=== PATIENT | male | born 1995 | race Caucasian/White ===

== ENCOUNTER 2019-06-16 08:17 | Inpatient (IN) | payer OTHER ==
[~2019-06-16] VITALS: Ht 175.3 cm; Wt 64.0 kg
[2019-06-16] VITALS (11 sets, daily range): BP systolic 117–149; BP diastolic 67–86
--- NOTE | 2019-06-16 08:29 | NUR ---
ED Nurse Note: Pt walked into unit w/ abdominal pain 7/10 R side. Pain started this morning at 0400. Pt denies nuasea and vomiting, diarrhea. Last BM was today solid and brown. Pt is alert adn orientedx4, ambulatory. Pt sitting in bed.
--- NOTE | 2019-06-16 08:42 | Emergency Room Report ---
History of Present Illness General Chief Complaint: Abdominal Pain Source: Patient Present Illness HPI Patient presents with what he reports essentially bilateral and diffuse abdominal discomfort starting earlier last night patient was able to sleep however around 4:00 had increased pain followed by diarrhea patient also now reports that he feels the pain is More towards the right lower part of the abdomen denies any vomiting denies any fevers denies any chest pain or shortness of breath pain is 7 out of 10 sharp Denies any recent travel Allergies: Coded Allergies: No Known Allergies (Unverified , 06/16/19) Patient History Past Medical History: see triage record Reviewed Nursing Documentation: PMH: Agreed; PSxH: Agreed Nursing Documentation-PMH Past Medical History: No Stated History Review of Systems All Other Systems: negative except mentioned in HPI Physical Exam Vital Signs Date Time Temp Pulse Resp B/P (MAP) Pulse Ox O2 Delivery O2 Flow Rate FiO2 06/16/19 08:20 97.5 98 19 128/76 (93) 99 Room Air 06/16/19 08:31 96 Sp02 EP Interpretation: reviewed, normal General Appearance: mild distress Head: normocephalic, atraumatic Eyes: bilateral eye PERRL, bilateral eye EOMI ENT: hearing grossly normal, EOM grossly intact Neck: supple Respiratory: lungs clear, no respiratory distress, no retraction Cardiovascular #1: regular rate, rhythm, no edema Gastrointestinal: non tender - On palpation however subjectively points to the right area of the umbilical region, soft Genitourinary: no CVA tenderness Musculoskeletal: normal inspection Neurologic: alert, oriented x3 Psychiatric: normal inspection Skin: no rash Lymphatic: normal inspection Procedures Critical Care Time Critical Care Time 40 minutes for multiple re-evaluations findings concerning for left ring process requiring general surgery consultation and further emergency surgery intervention not including any procedural time Medical Decision Making Diagnostic Impression: Primary Impression: Acute appendicitis ER Course With the history exam and presentation, multiple differentials considered, including but not limited to appendicitis, gastritis, cholecystitis, diverticulitis Patient has IV hydration initiated extensive blood work and imaging CT imaging does show concerning findings of appendicitis there was report of possible microperforation as well Patient initiated on IV antibiotics and General surgery accepting to the OR Labs Test 06/16/19 08:30 06/17/19 04:40 White Blood Count 12.5 K/UL (4.8-10.8) 10.8 K/UL (4.8-10.8) Red Blood Count 5.18 M/UL (4.70-6.10) 4.23 M/UL (4.70-6.10) Hemoglobin 16.8 G/DL (14.2-18.0) 13.8 G/DL (14.2-18.0) Hematocrit 47.8 % (42.0-52.0) 39.5 % (42.0-52.0) Mean Corpuscular Volume 92 FL (80-99) 93 FL (80-99) Mean Corpuscular Hemoglobin 32.5 PG (27.0-31.0) 32.6 PG (27.0-31.0) Mean Corpuscular Hemoglobin Concent 35.2 G/DL (32.0-36.0) 34.9 G/DL (32.0-36.0) Red Cell Distribution Width 12.3 % (11.6-14.8) 12.1 % (11.6-14.8) Platelet Count 194 K/UL (150-450) 154 K/UL (150-450) Mean Platelet Volume 9.4 FL (6.5-10.1) 8.9 FL (6.5-10.1) Neutrophils (%) (Auto) 76.4 % (45.0-75.0) 71.0 % (45.0-75.0) Lymphocytes (%) (Auto) 12.2 % (20.0-45.0) 17.5 % (20.0-45.0) Monocytes (%) (Auto) 10.3 % (1.0-10.0) 10.5 % (1.0-10.0) Eosinophils (%) (Auto) 0.4 % (0.0-3.0) 0.4 % (0.0-3.0) Basophils (%) (Auto) 0.8 % (0.0-2.0) 0.6 % (0.0-2.0) Urine Color Yellow Urine Appearance Clear Urine pH 8 (4.5-8.0) Urine Specific [place] 1.010 (1.005-1.035) Urine Protein 1+ (NEGATIVE) Urine Glucose (UA) Negative (NEGATIVE) Urine Ketones 1+ (NEGATIVE) Urine Blood Negative (NEGATIVE) Urine Nitrite Negative (NEGATIVE) Urine Bilirubin Negative (NEGATIVE) Urine Urobilinogen 1 MG/DL (0.0-1.0) Urine Leukocyte Esterase Negative (NEGATIVE) Urine RBC 0 /HPF (0 - 0) Urine WBC 0 /HPF (0 - 0) Urine Squamous Epithelial Cells Occasional /LPF Urine Bacteria Occasional /HPF (NONE) Urine Mucus Few /LPF (NONE/OCC) Sodium Level 141 MMOL/L (136-145) 141 MMOL/L (136-145) Potassium Level 4.2 MMOL/L (3.5-5.1) 4.0 MMOL/L (3.5-5.1) Chloride Level 106 MMOL/L (98-107) 106 MMOL/L (98-107) Carbon Dioxide Level 23 MMOL/L (21-32) 25 MMOL/L (21-32) Anion Gap 12 mmol/L (5-15) 10 mmol/L (5-15) Blood Urea Nitrogen 8 mg/dL (7-18) 5 mg/dL (7-18) Creatinine 0.9 MG/DL (0.55-1.30) 0.9 MG/DL (0.55-1.30) Estimat Glomerular Filtration Rate > 60 mL/min (>60) > 60 mL/min (>60) Glucose Level 93 MG/DL (74-106) 104 MG/DL (74-106) Calcium Level 9.5 MG/DL (8.5-10.1) 9.0 MG/DL (8.5-10.1) Total Bilirubin 0.9 MG/DL (0.2-1.0) Aspartate Amino Transf (AST/SGOT) 17 U/L (15-37) Alanine Aminotransferase (ALT/SGPT) 17 U/L (12-78) Alkaline Phosphatase 88 U/L (46-116) Total Protein 8.7 G/DL (6.4-8.2) Albumin 4.4 G/DL (3.4-5.0) Globulin 4.3 g/dL Albumin/Globulin Ratio 1.0 (1.0-2.7) Lipase 104 U/L (73-393) Urine Opiates Screen Negative (NEGATIVE) Urine Barbiturates Screen Negative (NEGATIVE) Phencyclidine (PCP) Screen Negative (NEGATIVE) Urine Amphetamines Screen Negative (NEGATIVE) Urine Benzodiazepines Screen Negative (NEGATIVE) Urine Cocaine Screen Negative (NEGATIVE) Urine Marijuana (THC) Screen Negative (NEGATIVE) CT/MRI/US Diagnostic Results CT/MRI/US Diagnostic Results : Impression CT abdomen pelvisIMPRESSION: 9.2 mm fluid dilated appendix with thickened enhancing wall and surrounding inflammatory changes consistent with acute appendicitis. 6 mm appendicolith in the mid appendix. Small free fluid may be microperforation. No free air or abscess. Last Vital Signs Date Time Temp Pulse Resp B/P (MAP) Pulse Ox O2 Delivery O2 Flow Rate FiO2 06/16/19 08:31 97 20 Room Air 96 06/16/19 08:31 97.5 125/74 99 Status: improved Disposition: ADMITTED INPATIENT Condition: Critical Scripts No Active Prescriptions or Reported Meds Alayna Cee DO Jun 16, 2019 08:42
[2019-06-16] MEDS ORDERED: Omnipaque-300 100ml vial INJ PRN (08:45)
[2019-06-16] MEDS ORDERED: Ketorolac 30mg Inj IV ONE (08:45)
[2019-06-16 09:05] LABS: APPEARANCE,URINE CLEAR; BILIRUBIN, URINE NEGATIVE (NEGATIVE); GLUCOSE, URINE (UA) NEGATIVE (NEGATIVE); KETONES,URINE 1+ (NEGATIVE); LEUKOCYTE ESTERASE ,URINE NEGATIVE (NEGATIVE); NITRITE,URINE NEGATIVE (NEGATIVE); PH,URINE 8 (4.5-8.0); PROTEIN,URINE 1+ (NEGATIVE); UROBILINOGEN,URINE 1 MG/DL (0.0-1.0)
[2019-06-16 09:08] LABS: BASOPHILS % (AUTO) 0.8 % (0.0-2.0); EOSINOPHILS % (AUTO) 0.4 % (0.0-3.0); HEMATOCRIT 47.8 % (42.0-52.0); HEMOGLOBIN 16.8 G/DL (14.2-18.0); LYMPHOCYTES % (AUTO) 12.2 % (20.0-45.0); MEAN CORPUSCULAR VOLUME 92 FL (80-99); MONOCYTES % (AUTO) 10.3 % (1.0-10.0); NEUTROPHILS % (AUTO) 76.4 % (45.0-75.0); PLATELET COUNT 194 K/UL (150-450); RED BLOOD COUNT 5.18 M/UL (4.70-6.10); RED CELL DISTRIBUTION WIDTH 12.3 % (11.6-14.8); WHITE BLOOD COUNT 12.5 K/UL (4.8-10.8)
[2019-06-16 09:10] LABS: COLOR,URINE YELLOW
[2019-06-16 09:17] LABS: ANION GAP 12 mmol/L (5-15); BLOOD UREA NITROGEN 8 mg/dL (7-18); CALCIUM 9.5 MG/DL (8.5-10.1); CARBON DIOXIDE 23 MMOL/L (21-32); CHLORIDE 106 MMOL/L (98-107); CREATININE 0.9 MG/DL (0.55-1.30); POTASSIUM 4.2 MMOL/L (3.5-5.1); SODIUM 141 MMOL/L (136-145)
[2019-06-16 09:21] LABS: ALANINE AMINOTRANSFERASE 17 U/L (12-78); ALBUMIN 4.4 G/DL (3.4-5.0); ALKALINE PHOSPHATASE 88 U/L (46-116); ASPARTATE AMINO TRANSFERASE 17 U/L (15-37); BILIRUBIN,TOTAL 0.9 MG/DL (0.2-1.0)
--- NOTE | 2019-06-16 10:48 | Diagnostic Imaging Report ---
EXAM: CT Abdomen and Pelvis With Intravenous Contrast CLINICAL HISTORY: PAIN TECHNIQUE: Axial computed tomography images of the abdomen and pelvis with intravenous contrast. CTDI is 13.1 mGy and DLP is 698.7 mGy-cm. One or more of the following dose reduction techniques were used: automated exposure control, adjustment of the mA and/or kV according to patient size, use of iterative reconstruction technique. COMPARISON: No relevant prior studies available. FINDINGS: Lung bases: Unremarkable. No mass. No consolidation. ABDOMEN: Liver: Prominent left lobe of the liver. Gallbladder and bile ducts: Unremarkable. No calcified stones. No ductal dilation. Pancreas: Unremarkable. No mass. No ductal dilation. Spleen: Unremarkable. No splenomegaly. Adrenals: Unremarkable. No mass. Kidneys and ureters: Small bilateral renal low-density lesions, largest 10 mm in the right kidney. Stomach and bowel: Unremarkable. No obstruction. No mucosal thickening. PELVIS: Appendix: 9.2 mm fluid dilated appendix with thickened enhancing wall and surrounding inflammatory changes consistent with acute appendicitis. 6 mm appendicolith in the mid appendix. Small free fluid may be microperforation. No free air or abscess. Bladder: Mild thickening of the urinary bladder likely reactive. Reproductive: Slightly prominent bilateral vas deferens. ABDOMEN and PELVIS: Intraperitoneal space: See above. Bones/joints: No acute fracture. No dislocation. Soft tissues: Unremarkable. Vasculature: Unremarkable. No abdominal aortic aneurysm. Lymph nodes: Unremarkable. No enlarged lymph nodes. IMPRESSION: 9.2 mm fluid dilated appendix with thickened enhancing wall and surrounding inflammatory changes consistent with acute appendicitis. 6 mm appendicolith in the mid appendix. Small free fluid may be microperforation. No free air or abscess. <MYCVCSECTION> Communications: 06/16/19 10:48 Call Doctor Regarding Appendicitis, called Alayna Cee MD on 06/16 10:47 (-08:00)
[2019-06-16] MEDS ORDERED: Piperacillin/Tazobactam 3.375 GM in NS 110 ML IVPB ONE (11:00)
--- NOTE | 2019-06-16 11:29 | Consultation ---
History of Present Illness General Date patient seen: Jun 16, 2019 Reason for Hospitalization: Abdominal Pain Present Illness HPI 24M otherwise healthy male presented to ED with complaints of abdominal pain RLQ x 1 day. no n/v/f/c. diarrhea. pain cramping sharp RLQ without radiation 12/16 at max currently 10/16. CT with acute appendicitis. surgery called to evaluate. patient seen, chart reviewed, patient examined. Allergies: Coded Allergies: No Known Allergies (Unverified , 06/16/19) Medication History No Active Prescriptions or Reported Meds Patient History History Provided By: Patient Healthcare decision maker Resuscitation status Advanced Directive on File Past Medical/Surgical History Past Medical/Surgical History: (1) Acute appendicitis Review of Systems Review of Symptoms General ROS: no weight loss or fever Psychological ROS: no depression or mood changes, no memory loss Ophthalmic ROS: no visual changes or eye irritation ENT ROS: no nasal congestion, hearing loss, dizziness Allergy and Immunology ROS: no allergic symptoms or urticaria Hematological and Lymphatic ROS: no swollen glands, unusual bleeding or bruising Endocrine ROS: no polyuria, polydipsia, weight changes, temperature intolerance Respiratory ROS: no cough, shortness of breath, or wheezing Cardiovascular ROS: no chest pain or dyspnea on exertion Gastrointestinal ROS: abdominal pain, bright red blood in stool. Musculoskeletal ROS: no myalgias or arthralgias Neurological ROS: no TIA or stroke symptoms Dermatological ROS: no new or changing skin lesions, rashes or pruritis Physical Exam Physical Exam General appearance: alert, cooperative, no distress, appears stated age Head: Normocephalic, without obvious abnormality, atraumatic Eyes: conjunctivae/corneas clear. PERRL, EOM's intact. Fundi benign Throat: Lips, mucosa, and tongue normal. Teeth and gums normal Neck: supple, symmetrical, trachea midline, no adenopathy, thyroid: not enlarged, symmetric, no tenderness/mass/nodules, no carotid bruit and no JVD Lungs: clear to auscultation bilaterally Heart: regular rate and rhythm, S1, S2 normal, no murmur, click, rub or gallop Abdomen: soft, RLQ tender on palpation with rebound and guarding. Bowel sounds normal. No masses, no organomegaly Extremities: extremities normal, atraumatic, no cyanosis or edema Pulses: 2+ and symmetric Skin: Skin color, texture, turgor normal. No rashes or lesions Neurologic: Grossly normal Last 24 Hour Vital Signs Date Time Temp Pulse Resp B/P (MAP) Pulse Ox O2 Delivery O2 Flow Rate FiO2 06/16/19 08:31 97 20 Room Air 96 06/16/19 08:31 97.5 95 20 125/74 99 Room Air 06/16/19 08:20 97.5 98 19 128/76 (93) 99 Room Air Laboratory Tests Test 06/16/19 08:30 White Blood Count 12.5 K/UL (4.8-10.8) H Red Blood Count 5.18 M/UL (4.70-6.10) Hemoglobin 16.8 G/DL (14.2-18.0) Hematocrit 47.8 % (42.0-52.0) Mean Corpuscular Volume 92 FL (80-99) Mean Corpuscular Hemoglobin 32.5 PG (27.0-31.0) H Mean Corpuscular Hemoglobin Concent 35.2 G/DL (32.0-36.0) Red Cell Distribution Width 12.3 % (11.6-14.8) Platelet Count 194 K/UL (150-450) Mean Platelet Volume 9.4 FL (6.5-10.1) Neutrophils (%) (Auto) 76.4 % (45.0-75.0) H Lymphocytes (%) (Auto) 12.2 % (20.0-45.0) L Monocytes (%) (Auto) 10.3 % (1.0-10.0) H Eosinophils (%) (Auto) 0.4 % (0.0-3.0) Basophils (%) (Auto) 0.8 % (0.0-2.0) Urine Color Yellow Urine Appearance Clear Urine pH 8 (4.5-8.0) Urine Specific [place] 1.010 (1.005-1.035) Urine Protein 1+ (NEGATIVE) H Urine Glucose (UA) Negative (NEGATIVE) Urine Ketones 1+ (NEGATIVE) H Urine Blood Negative (NEGATIVE) Urine Nitrite Negative (NEGATIVE) Urine Bilirubin Negative (NEGATIVE) Urine Urobilinogen 1 MG/DL (0.0-1.0) H Urine Leukocyte Esterase Negative (NEGATIVE) Urine RBC 0 /HPF (0 - 0) Urine WBC 0 /HPF (0 - 0) Urine Squamous Epithelial Cells Occasional /LPF Urine Bacteria Occasional /HPF (NONE) Urine Mucus Few /LPF (NONE/OCC) H Sodium Level 141 MMOL/L (136-145) Potassium Level 4.2 MMOL/L (3.5-5.1) Chloride Level 106 MMOL/L (98-107) Carbon Dioxide Level 23 MMOL/L (21-32) Anion Gap 12 mmol/L (5-15) Blood Urea Nitrogen 8 mg/dL (7-18) Creatinine 0.9 MG/DL (0.55-1.30) Estimat Glomerular Filtration Rate > 60 mL/min (>60) Glucose Level 93 MG/DL (74-106) Calcium Level 9.5 MG/DL (8.5-10.1) Total Bilirubin 0.9 MG/DL (0.2-1.0) Aspartate Amino Transf (AST/SGOT) 17 U/L (15-37) Alanine Aminotransferase (ALT/SGPT) 17 U/L (12-78) Alkaline Phosphatase 88 U/L (46-116) Total Protein 8.7 G/DL (6.4-8.2) H Albumin 4.4 G/DL (3.4-5.0) Globulin 4.3 g/dL Albumin/Globulin Ratio 1.0 (1.0-2.7) Lipase 104 U/L (73-393) Urine Opiates Screen Negative (NEGATIVE) Urine Barbiturates Screen Negative (NEGATIVE) Phencyclidine (PCP) Screen Negative (NEGATIVE) Urine Amphetamines Screen Negative (NEGATIVE) Urine Benzodiazepines Screen Negative (NEGATIVE) Urine Cocaine Screen Negative (NEGATIVE) Urine Marijuana (THC) Screen Negative (NEGATIVE) Height (Feet): 5 Height (Inches): 7.00 Weight (Pounds): 142 Medications Current Medications Medications (Trade) Dose Ordered Sig/Tang Route PRN Reason Start Time Stop Time Status Last Admin Dose Admin Iohexol (OMNIPAQUE-300 100ml) 100 ml NOW PRN INJ Radiology Procedure 06/16/19 08:45 06/18/19 08:38 Metronidazole 100 ml @ 100 mls/hr ONCE ONCE IVPB 06/16/19 11:00 06/16/19 11:59 Piperacillin Sod/ Tazobactam Sod 3.375 gm/Sodium Chloride 110 ml @ 220 mls/hr ONCE ONCE IVPB 06/16/19 11:00 06/16/19 11:29 06/16/19 11:13 Assessment/Plan Problem List: (1) Acute appendicitis Assessment & Plan: 24 year old male with acute appendicitis. afebrile, HD stable labs as above exam with focal RLQ tenderness. CT consistent with acute appendicitis npo iv fluids iv abx consent to or for lap vs open appy thank you ICD Codes: K35.80 - Unspecified acute appendicitis SNOMED: [id number] Horacio Milan Jun 16, 2019 11:29
[2019-06-16] MEDS ORDERED: NS Irrig 1000ml ONE (11:30)
[2019-06-16] MEDS ORDERED: Sterile Water Irrig 1000ml IRRIG ONE (11:30)
[2019-06-16] MEDS ORDERED: LR 1000ml ONE (11:30)
--- NOTE | 2019-06-16 11:30 | Pre-Procedure Note/Attestation ---
Pre-Procedure Note/Attestation Complete Prior to Procedure Planned Procedure: not applicable Procedure Narrative: laparoscopic appendectomy possible open Indications for Procedure Pre-Operative Diagnosis: acute appendicitis Attestation I attest that I discussed the nature of the procedure; its benefits; risks and complications; and alternatives (and the risks and benefits of such alternatives ), prior to the procedure, with the patient (or the patient's legal automotive leasing sales representative). I attest that, if there was a reasonable possibility of needing a blood transfusion, the patient (or the patient's legal automotive leasing sales representative) was given the [facility] standardized written summary, pursuant to the [place] Blood Safety Act ([place] Health and Safety Code # 1645, as amended). I attest that I re-evaluated the patient just prior to the surgery and that there has been no change in the patient's H&P, except as documented below: Horacio Milan Jun 16, 2019 11:30
[2019-06-16] MEDS ORDERED: Rocuronium Bromide 50mg/5ml Inj IV ONE (11:33)
--- NOTE | 2019-06-16 11:35 | NUR ---
ED Nurse Note: CN states ok not to five Flagyl right now.
--- NOTE | 2019-06-16 11:36 | NUR ---
ED Nurse Note: Pt being taken to sx for lap appy. Pt consent form signed. Pt took all belongings. Zoysn running. Preop checklist done.
[2019-06-16] MEDS ORDERED: Propofol 200mg/20ml IV ONE (11:38)
[2019-06-16] MEDS ORDERED: Lidocaine 1% MPF 10mg/ml 5ml ONE (11:38)
[2019-06-16] MEDS ORDERED: fentaNYL 100 mcg/2 mL IV ONE ×2 (11:38→11:53)
--- NOTE | 2019-06-16 12:38 | Brief Operative Note ---
Immediate Post Operative Note Operative Note Pre-op Diagnosis: acute appendicitis Procedure: lap appy Post-op Diagnosis: same as pre-op Surgeon: sharlene Anesthesiologist: leo Anesthesia: general, local Specimen: yes Complications: none Condition: stable Fluids: see records Estimated Blood Loss: minimal Drains: none Implant(s) used?: No Horacio Milan Jun 16, 2019 12:38
--- NOTE | 2019-06-16 12:39 | Anethesia Preoperative Eval ---
Anesthesia Pre-op PMH/ROS General Date of Evaluation: Jun 16, 2019 Time of Evaluation: 11:30 ASA Score: ASA 4 Mallampati Score Class I : Soft palate, uvula, fauces, pillars visible Class II: Soft palate, uvula, fauces visible Class III: Soft palate, base of uvula visible Class IV: Only hard plate visible Mallampati Classification: Class I Allergies: Coded Allergies: No Known Allergies (Unverified , 06/16/19) Patient NPO?: Yes Anesthesia Pre-op Phys. Exam Physician Exam Last Vital Signs Date Time Temp Pulse Resp B/P (MAP) Pulse Ox O2 Delivery O2 Flow Rate FiO2 06/16/19 11:35 97.8 96 20 122/70 96 Room Air 06/16/19 08:31 96 Airway Exam Mallampati Score: Class I Anesthesia Pre-op A/P Labs Hematology Test 06/16/19 08:30 White Blood Count 12.5 K/UL (4.8-10.8) H Red Blood Count 5.18 M/UL (4.70-6.10) Hemoglobin 16.8 G/DL (14.2-18.0) Hematocrit 47.8 % (42.0-52.0) Mean Corpuscular Volume 92 FL (80-99) Mean Corpuscular Hemoglobin 32.5 PG (27.0-31.0) H Mean Corpuscular Hemoglobin Concent 35.2 G/DL (32.0-36.0) Red Cell Distribution Width 12.3 % (11.6-14.8) Platelet Count 194 K/UL (150-450) Mean Platelet Volume 9.4 FL (6.5-10.1) Neutrophils (%) (Auto) 76.4 % (45.0-75.0) H Lymphocytes (%) (Auto) 12.2 % (20.0-45.0) L Monocytes (%) (Auto) 10.3 % (1.0-10.0) H Eosinophils (%) (Auto) 0.4 % (0.0-3.0) Basophils (%) (Auto) 0.8 % (0.0-2.0) Chemistry Test 06/16/19 08:30 Sodium Level 141 MMOL/L (136-145) Potassium Level 4.2 MMOL/L (3.5-5.1) Chloride Level 106 MMOL/L (98-107) Carbon Dioxide Level 23 MMOL/L (21-32) Anion Gap 12 mmol/L (5-15) Blood Urea Nitrogen 8 mg/dL (7-18) Creatinine 0.9 MG/DL (0.55-1.30) Estimat Glomerular Filtration Rate > 60 mL/min (>60) Glucose Level 93 MG/DL (74-106) Calcium Level 9.5 MG/DL (8.5-10.1) Total Bilirubin 0.9 MG/DL (0.2-1.0) Aspartate Amino Transf (AST/SGOT) 17 U/L (15-37) Alanine Aminotransferase (ALT/SGPT) 17 U/L (12-78) Alkaline Phosphatase 88 U/L (46-116) Total Protein 8.7 G/DL (6.4-8.2) H Albumin 4.4 G/DL (3.4-5.0) Globulin 4.3 g/dL Albumin/Globulin Ratio 1.0 (1.0-2.7) Lipase 104 U/L (73-393) Adolfo Baeza MD Jun 16, 2019 12:39
--- NOTE | 2019-06-16 12:40 | Immediate Post-Op Evaluation ---
Immediate Post-Op Evalulation Immediate Post-Op Evalulation Procedure: lap appy Date of Evaluation: Jun 16, 2019 Time of Evaluation: 12:40 Nausea: No Vomiting: No Adolfo Baeza MD Jun 16, 2019 12:40
[2019-06-16] MEDS ORDERED: fentaNYL 100 mcg/2 mL IV PRN (12:45)
[2019-06-16] MEDS ORDERED: Milk of Magnesia 30ml Ud ORAL PRN (14:31)
[2019-06-16] MEDS ORDERED: DiphenhydrAMINE 25mg Tab ORAL PRN (14:32)
[2019-06-16] MEDS ORDERED: Morphine Sulfate 2mg/ml Inj(IV/IM USE ONLY) IVP PRN ×2 (14:34)
[2019-06-16] MEDS ORDERED: Ketorolac 30mg Inj IV PRN (15:00)
[2019-06-16] MEDS: Morphine Sulfate 4mg/ml Inj (IV USE ONLY) IVP PRN (15:13)
[2019-06-16] MEDS: Docusate 100mg cap ORAL SCH (18:29)
--- NOTE | 2019-06-16 19:50 | NUR ---
HAND-OFF: Report given to NADIYA Al pt is in stable condition.
[2019-06-16] MEDS: Piperacillin/Tazobactam 3.375 GM in NS 110 ML IVPB SCH (20:00)
--- NOTE | 2019-06-16 20:27 | NUR ---
NURSE NOTES: Pt is in bed, awake and alert. Pt is ambulatory. No acute distress noted. Vitas stable. S/p appendectomy. Lap sites dry and intact. Incentive spherometer by bedside. Pain medication will be given as ordered PRN. Fall precaution in place. bed locked low in position,side rails up and call light within reach. Pt will be monitored.
[2019-06-16] MEDS ORDERED: Zolpidem 5mg tab ORAL PRN (21:00)
--- NOTE | 2019-06-16 22:15 | Operative Note - Dictated ---
DATE OF OPERATION: 06/16/2019 OPERATION PERFORMED: Laparoscopic appendectomy. PREOPERATIVE DIAGNOSIS: Acute appendicitis. POSTOPERATIVE DIAGNOSIS: Acute appendicitis. SURGEON: Horacio Milan M.D. VETERINARIAN EPIDEMIOLOGIST: None. ANESTHESIOLOGIST: Dr. Baeza. ANESTHESIA: General DRIER plus local. ESTIMATED BLOOD LOSS: Minimal. IV FLUIDS: Please see records. COMPLICATIONS: None. DRAINS: None. COUNTS: Sponge and needle count correct x2. WOUND CLASSIFICATION: Class 3. SPECIMENS: Appendix sent to pathology for review. ANTIBIOTICS: The patient was given IV Zosyn in the emergency department. INDICATIONS FOR PROCEDURE: This is a 24-year-old male, who presented to [facility] ED complaining of worsening right upper quadrant abdominal pain for 1 day. The patient with mild leukocytosis, focal right lower quadrant tenderness, and CT consistent with acute appendicitis. Surgery was indicated and recommended. Risks, benefits, and alternatives were discussed with the patient in detail, who expressed understanding and consented to surgery. OPERATIVE NOTE: The patient was taken to the operative room and placed on the operating table in supine position with left arm tucked. All bony prominences were well padded. SCDs placed. Preoperative time-out taken in identifying the patient, procedure, operative staff, and staff surgical staff. General anesthesia was induced. The patient was intubated. The abdomen was clipped, prepped, and draped in standard surgical fashion. Local anesthetic was used at all port sites and incision sites for the patient's comfort. An infraumbilical incision was made and carried down through the subcutaneous tissue to the fascia, which was elevated and incised. Entry into the abdomen obtained using open Sean technique. A 12 mm Sean trocar was inserted and the abdomen was insufflated to 12 to 15 mmHg. The patient tolerated the insufflation well. Laparoscope inserted and the abdomen inspected. No injury from initial trocar placement noted. Secondary trocars placed under direct visualization beginning with a 12 mm left lower quadrant followed by a 5 mm suprapubic. No injury from secondary trocar placement noted. The patient was placed in Trendelenburg with left side down. The cecum was identified and the teniae followed to the confluence at which time, base of the appendix was identified. The base is mildly dilated and followed towards the tip of the appendix, which was inflamed and consistent with acute appendicitis and perforated. A window was made at the base of the appendix between the appendix and mesoappendix. A laparoscopic linear stapler was used and the base of the appendix was divided without complication. In a similar fashion, a laparoscopic linear stapler was used and the mesoappendix was divided. The appendix was placed in the endoscopic retrieval bag and removed from the abdomen using the umbilical port site. The staple lines were evaluated, noted to have mild oozing and laparoscopic clips were placed and hemostasis obtained. The mesoappendix staple line and appendiceal base staple line were hemostatic, intact, and viable. At this time, began the conclusion of our procedure. No other abnormalities were noted in the abdomen. A small direct right-sided inguinal hernia and a very small indirect left inguinal hernia were identified, but did not require urgent care or intervention at this time. The abdomen was desufflated and secondary trocars removed under direct visualization without complication. Umbilical trocar site removed and the umbilical trocar site fashioned and left lower quadrant 12 mm trocar site fascia was reapproximated using [id number] #0 Vicryl sutures. Skin incisions were cleansed and reapproximated using 4-0 Monocryl subcuticular interrupted sutures. Skin glue, Steri-Strips applied. The patient tolerated the procedure well and was extubated and taken to postanesthetic care unit in stable condition. Horacio Milan M.D. DR: CONRADO JOB#: [id number] CC:
[2019-06-17] VITALS: BP 121/74
--- NOTE | 2019-06-17 03:25 | NUR ---
NURSE NOTES: Pt is in bed, asleep. No acute distress noted.
[2019-06-17 04:00] VITALS: BP 128/83
[2019-06-17] MEDS: Piperacillin/Tazobactam 3.375 GM in NS 110 ML IVPB SCH (05:21)
[2019-06-17] MEDS: Morphine Sulfate 4mg/ml Inj (IV USE ONLY) IVP PRN (05:50)
[2019-06-17 05:54] LABS: BASOPHILS % (AUTO) 0.6 % (0.0-2.0); EOSINOPHILS % (AUTO) 0.4 % (0.0-3.0); HEMATOCRIT 39.5 % (42.0-52.0); HEMOGLOBIN 13.8 G/DL (14.2-18.0); LYMPHOCYTES % (AUTO) 17.5 % (20.0-45.0); MEAN CORPUSCULAR VOLUME 93 FL (80-99); MONOCYTES % (AUTO) 10.5 % (1.0-10.0); PLATELET COUNT 154 K/UL (150-450); RED BLOOD COUNT 4.23 M/UL (4.70-6.10); RED CELL DISTRIBUTION WIDTH 12.1 % (11.6-14.8); WHITE BLOOD COUNT 10.8 K/UL (4.8-10.8)
[2019-06-17 06:41] LABS: ANION GAP 10 mmol/L (5-15); BLOOD UREA NITROGEN 5 mg/dL (7-18); CARBON DIOXIDE 25 MMOL/L (21-32); CHLORIDE 106 MMOL/L (98-107); CREATININE 0.9 MG/DL (0.55-1.30); SODIUM 141 MMOL/L (136-145)
--- NOTE | 2019-06-17 07:30 | NUR ---
HAND-OFF: Report given to NADIYA Moyer.Endorsed to incoming nurse that pt is high fall risk.
--- NOTE | 2019-06-17 07:58 | NUR ---
NURSE NOTES: Patient is AOx4, walking in room. Stable. Denies pain or SOB. Patient encouraged to use call light for assistance, verbalized understanding. Plan of care discussed with patient. Surgical site c/d/i. Patient is in bed in locked and lowest position with call light within reach. All needs met at this time. Will continue to monitor.
[2019-06-17 08:00] VITALS: BP 143/93
[2019-06-17] MEDS: Docusate 100mg cap ORAL SCH (09:15)
--- NOTE | 2019-06-17 09:34 | NUR ---
PT Note PT eval completed. Patient is independent in all mobility and gait. No further PT needed at this time. Patient was instructed to ambulate as able.
--- NOTE | 2019-06-17 11:44 | NUR ---
NURSE NOTES: Patient discharged home as ordered. Stable. Denies pain or SOB. Patient was given thorough discharge instructions by RN and Dr. Bustillo. Discharge instructions given to patient. Patient is aware of follow up appointments with Dr. bustillo and Dr. Milan. Patient has all belongings. No IV access. Patient's surgical site c/d/i. Patient has prescriptions and stated that he will fill prescriptions at his pharmacy by his house. Patient assisted downstairs by staff without incident.
--- NOTE | 2019-06-17 16:00 | History and Physical Report ---
DATE OF ADMISSION: 06/16/2019 HISTORY OF PRESENT ILLNESS: This is a 24-year-old white male came to the emergency room for having abdominal pain, nausea, vomiting yesterday. The patient underwent surgery for status post appendectomy. The patient tolerating diet. Pain is controlled. PAST MEDICAL HISTORY: None. ALLERGIES: None. MEDICATIONS: None. The patient lives at [place], works in technical work. PHYSICAL EXAMINATION: VITAL SIGNS: Blood pressure 143/93, pulse 73, respirations 18, and temperature 97.9. HEENT: AT/NC. EOMI. PERRLA. NECK: Supple. No JVD. CHEST: Bilaterally decreased breath sounds. CARDIOVASCULAR: Regular rhythm. ABDOMEN: Soft. Positive bowel sounds. Mild spasm on right upper quadrant and right lower quadrant. GENITOURINARY: Deferred. LABORATORY AND DIAGNOSTIC DATA: White count 38925, hemoglobin 14, hematocrit 49, platelets 154,000. Chemistry panel, sodium 140, potassium 4, BUN 5, creatinine 0.9, glucose is 104. LFTs are unremarkable. Urine drug screen is 1+ urobilinogen, 1+ blood. Toxicology is negative. ASSESSMENT: Acute appendicitis, status post surgery. The patient tolerating diet. PLAN: Discharge home with p.o. antibiotics as well as p.o. pain medication as well as soft diet. Discussed with the patient and her girlfriend who was in the room. Continue current treatment. Followup in office on Tuesday about 11:30. Franco Bustillo M.D. DR: Erica JOB#: [id number] CC:
--- NOTE | 2019-06-18 06:24 | 48 Hour Post Anesthesia Eval ---
Post Anesthesia Evaluation Procedure: lap appy Date of Evaluation: Jun 17, 2019 Airway: patent Nausea: No Vomiting: No Hydration Status: adequate Cardiopulmonary Status: at baseline Mental Status/LOC: patient returned to baseline Post-Anesthesia Complications: 0 Follow-up care needed: N/A - further care as per primary team Estrella Wright MD Jun 18, 2019 06:24
--- NOTE | 2019-06-19 07:12 | Discharge Summary ---
Discharge Summary Discharge Summary _ DATE OF ADMISSION: 06/16/2019 DATE OF DISCHARGE: 06/17/2019 DISCHARGED BY: Dr. Bustillo REASON FOR ADMISSION: 24 years old male with no significant past medical history , came to emergency room complaining of abdominal pain with associated nausea and vomiting. CT scan of the abdomen and pelvis revealed findings of acute appendicitis. Laboratory work-up revealed mild leukocytosis, otherwise stable laboratory data. Urine toxicology screen was negative. Surgeon seen and evaluated patient in emergency room . Patient was admitted for surgical intervention. CONSULTANTS: surgery Dr Holder HOSPITAL COURSE: Patient was kept n.p.o. and started on the IV fluids and empiric antibiotic. Patient consented for surgery and subsequently undergone laparoscopic appendectomy. Patient tolerated surgery well Course of recovery was uneventful. Patient slowly started on diet and was advanced as tolerated. Patient was able to tolerate diet. Pain management was addressed. Patient was ambulated without difficulty. Patient was voided without difficulties. Patient was stable for discharge home and follow-up with a surgeon as advised. Due to rapid and unexpected improvement in patient condition, patient was discharged in 1 day. FINAL DIAGNOSES: Acute appendicitis Status post laparoscopic appendectomy DISCHARGE MEDICATIONS: See Medication Reconciliation list. DISCHARGE INSTRUCTIONS: Discharge home. Patient to follow-up with a surgeon as advised. I have been assigned to dictate discharge summary for this account. I was not involved in the patient's management. Bettye Lainez NP Jun 19, 2019 07:12
--- NOTE | 2019-06-19 13:47 | NUR ---
*-* INSURANCE *-* ALL AVAILABLE CLINICALS HAVE BEEN FAXED TO: Joe Ref#F# [id number] NO [facility]# [phone] FAX# [phone] - ATTN: PRE CERT DEPT
== END 2019-06-17 11:40 | disposition home or self-care (01) | DRG 343 ==
LOC: EMR 08:45 → SUR 11:36 → EDBEDREQ 12:32 → 3E 12:41
PROC: 0DTJ4ZZ Resection of Appendix, Percutaneous Endoscopic Approach (ICD-10-PCS; principal; 2019-06-16 12:00)
DX: K35.80 Unspecified acute appendicitis (principal)
CPT/HCPCS: 36415; 74177; 80048; 80053; 80307; 81003; 83690; 85025; 94003; 94150; 96361; 96365; 96367; 96375; 99285; J2405; J7030